=== PATIENT | male | born 1970 | race American Indian/Alaskan Native ===

== ENCOUNTER 2020-08-30 13:19 | Emergency (ER) | payer OTHER ==
[2020-08-30 14:34] VITALS: BP 141/95
--- NOTE | 2020-08-30 14:34 | Emergency Department Report ---
- General Chief complaint: Wound/Laceration Stated complaint: DOG BITE Time Seen by Provider: 08/30/20 14:34 Source: patient Mode of arrival: Ambulatory Limitations: No Limitations - History of Present Illness Initial comments: Patient is a 50-year-old -[place] male that comes to the emergency room today with a right hand wound. He was seen here what he says 2 weeks ago but it was actually closer to a month ago for a dog bite to his right hand. At that time he had imaging, Tdap and was sent home on Bactrim. Patient states that he did take the Bactrim, however he adds that he has a couple pills left. His right hand is swollen, there is drainage from the wound. He has a intact peripheral neurovascular exam in triage. Patient is diabetic. I have educated him on the importance of wound care and taking antibiotics as prescribed. Patient has no hypotension or tachycardia. He has no fever. Patient is ambulatory and nontoxic in ER. - Related Data Previous Rx's Medication Instructions Recorded Last Taken Type Clindamycin [Clindamycin CAP] 300 mg PO Q8H #30 cap 08/30/20 Unknown Rx Allergies Allergy/AdvReac Type Severity Reaction Status Date / Time shellfish derived AdvReac Anaphylaxis Verified 08/30/20 14:33 Abscess Boil HPI - HPI Chief Complaint: Wound/Laceration Stated Complaint: DOG BITE Time Seen by Provider: 08/30/20 14:34 Home Medications: Previous Rx's Medication Instructions Recorded Last Taken Type Clindamycin [Clindamycin CAP] 300 mg PO Q8H #30 cap 08/30/20 Unknown Rx Allergies/Adverse Reactions: Allergies Allergy/AdvReac Type Severity Reaction Status Date / Time shellfish derived AdvReac Anaphylaxis Verified 08/30/20 14:33 ED Review of Systems ROS: Stated complaint: DOG BITE Other details as noted in HPI Comment: All other systems reviewed and negative ED Past Medical Hx - Past Medical History Previous Medical History?: Yes Hx Diabetes: Yes - Surgical History Past Surgical History?: No - Social History Smoking Status: Never Smoker Substance Use Type: None - Medications Home Medications: Home Medications Medication Instructions Recorded Confirmed Last Taken Type Clindamycin [Clindamycin CAP] 300 mg PO Q8H #30 cap 08/30/20 Unknown Rx ED Physical Exam - General Limitations: No Limitations General appearance: alert, in no apparent distress - Head Head exam: Present: atraumatic, normocephalic - Eye Eye exam: Present: normal appearance - ENT ENT exam: Present: mucous membranes moist - Neck Neck exam: Present: normal inspection - Respiratory Respiratory exam: Present: normal lung sounds bilaterally. Absent: respiratory distress - Cardiovascular Cardiovascular Exam: Present: regular rate, normal rhythm. Absent: systolic murmur, diastolic murmur, rubs, gallop - GI/Abdominal GI/Abdominal exam: Present: soft, normal bowel sounds - Rectal Rectal exam: Present: deferred - Extremities Exam Extremities exam: Present: normal inspection - Back Exam Back exam: Present: normal inspection - Neurological Exam Neurological exam: Present: alert, oriented X3 - Psychiatric Psychiatric exam: Present: normal affect, normal mood - Skin Skin exam: Present: warm, dry, intact, normal color. Absent: rash ED Course Vital Signs 08/30/20 14:33 Temperature 98.3 F Pulse Rate 77 Respiratory 18 Rate Blood Pressure 141/95 O2 Sat by Pulse 97 Oximetry ED Medical Decision Making - Medical Decision Making infected dog bite r hand wound cleaned and dressed it is draining distal neurovasc exam wnl pt educated on wound care he has not taken rx as initially given to him tdap utd IM rocephin today dc home with rx for clinda. I had a long discussion with the patient about the importance of him taking antibiotics at especially given his diabetes exactly as they are prescribed. Patient verbalizes understanding. Patient has been educated on wound care. He should not be using any Neosporin at this point I think that is making the wound worse. He is to encourage the wound to drain by soaking it in Epson salts and warm water. Patient verbalizes understanding of discharge plan of care and follow-up with primary care next week. Vital Signs 08/30/20 14:33 Temperature 98.3 F Pulse Rate 77 Respiratory 18 Rate Blood Pressure 141/95 O2 Sat by Pulse 97 Oximetry - Differential Diagnosis cellulius Critical care attestation.: If time is entered above; I have spent that time in minutes in the direct care of this critically ill patient, excluding procedure time. ED Disposition Clinical Impression: Cellulitis, History of diabetes mellitus, History of dog bite Disposition: DC-01 TO HOME OR SELFCARE Is pt being admited?: No Does the pt Need Aspirin: No Condition: Stable Instructions: Animal Bite, Adult, [id number], Cellulitis, Adult Additional Instructions: wash hand and soak three times per day allow it to continue to drain TAKE MED GIVEN TODAY EXACTLY ORDERED TAKE WITH FOOD FOR IT CAN BE IRRITATING TO STOMACH follow up with pcp in one week to be sure this is getting better referral below Prescriptions: Clindamycin [Clindamycin CAP] 300 mg PO Q8H #30 cap Referrals: JULIET CASTILLO MD [Staff Physician] - 3-5 Days Time of Disposition: 14:42
[2020-08-30] MEDS ORDERED: LIDOCAINE-MPF (1%) 10 MG/1 ML VIAL 5 ML INFILTRATI ONE (14:37)
== END 2020-08-30 15:52 | disposition home or self-care (01) ==
LOC: ED 13:19
DX: L03.113 Cellulitis of right upper limb (principal); E11.9 Type 2 diabetes mellitus without complications; Z79.2 Long term (current) use of antibiotics; Z91.013 Allergy to seafood
CPT/HCPCS: 96372; 99282; J0696